=== PATIENT | female | born 1945 | race Caucasian/White ===

== ENCOUNTER 2023-12-06 08:41 | Outpatient (CLI) | payer MEDICARE, BC | END 2023-12-06 08:42 | disposition home or self-care (01) | LOC: CSHRAD 08:41 | PROVIDERS: ATTEND Psychiatry & Neurology Neurology | DX: M48.061 Spinal stenosis, lumbar region without neurogenic claudication (principal); M79.604 Pain in right leg; M47.816 Spondylosis without myelopathy or radiculopathy, lumbar region; R93.6 Abnormal findings on diagnostic imaging of limbs | CPT/HCPCS: 72100; 93923 ==